=== PATIENT | male | born 1955 | race Caucasian/White ===

== ENCOUNTER 2017-08-26 15:00 | Emergency (ER) | payer OTHER ==
[~2017-08-26] VITALS: Ht 170.2 cm; Wt 97.0 kg
[2017-08-26 15:08] VITALS: TEMP 37.3; Ht 170.2 cm; Wt 97.0 kg
[2017-08-26] MEDS ORDERED: TRAMADOL HCL 50 MG TAB PO STA (15:25)
[2017-08-26] MEDS ORDERED: KETOROLAC TROMETHAMINE 30 MG/ML VIAL IV STA (15:25)
[2017-08-26] MEDS ORDERED: MoRPHine SULFATE 4 MG/ML 1 ML CARP\\VIAL IV STA (15:25)
--- NOTE | 2017-08-26 15:31 | EMERGENCY ROOM VISIT NOTE ---
History Report prepared by Luisibedi: Danni Aranda Under the Supervision of: Dr. Jus Christie M.D. First contact with patient: 15:12 Chief Complaint: PAIN (GENERALIZED) Stated Complaint: SEVERE PAIN/SWELLIN IN R ANKLE AND LEG AND R ARM History of Present Illness The patient is a 62 year old white male with a past medical history of hypertension, DM, hyperlipidemia, who presents to the ED with a cc of worsening right wrist and right ankle beginning 3 days ago. Positive erythema, edema. Negative recent trauma, falls. He reports the pain started in his left wrist. He had an MRI 2 days ago at [facility] and states it came back unremarkable. This morning he woke up with right ankle pain and swelling, that he rates as a 10/10 in severity. He called his doctors office and they referred him to the ED. He has tried Gabapentin, but states it has provided minimal relief. He can still move his toes and denies any numbness or weakness int he foot. He denies any alcohol or tobacco use. He has been eating and drinking normally. He is still urinating and moving his bowels normally. Source of History: patient Onset: 3 days [employer] Position: wrist (right), ankle (right) Symptom Intensity: 10/10 Timing: worsening Modifying Factors (Relieving): other (Gabapentin) Associated Symptoms: No weakness (right foot, right ankle), No numbness ( right foot, right ankle) Review of Systems See HPI for pertinent positives and negatives. A total of ten systems were reviewed and were otherwise negative. Past Medical & Surgical Medical Problems: (1) Diabetes mellitus (2) Fatty liver (3) Hyperlipidemia (4) Hypertension Social History Smoking Status: Former Smoker Alcohol Use: occasionally Drug Use: none Marital Status: Housing Status: lives with family Occupation Status: retired Current/Historical Medications Scheduled Allopurinol (Zyloprim), 100 MG PO DAILY Cephalexin (Keflex), 1 CAP PO QID Etodolac (Etodolac), 1 TAB PO BID Gabapentin (Neurontin), 100 MG PO TID Lisinopril (Zestril), 10 MG PO DAILY Metformin Hcl (Glucophage), 500 MG PO QPM Metformin Hcl (Glucophage), 1,000 MG PO QAM Omeprazole (Prilosec), 20 MG PO DAILY Pravastatin (Pravachol ), 20 MG PO DAILY Prednisone (Prednisone), 2 TAB PO DAILY Tamsulosin Hcl (Flomax), 0.4 MG PO DAILY Venlafaxine Hcl (Effexor), 75 MG PO DAILY Scheduled PRN Tramadol (Ultram), 50 MG PO Q8H PRN for Pain Physical Exam Vital Signs Date Time Temp Pulse Resp B/P (MAP) Pulse Ox O2 Delivery O2 Flow Rate FiO2 08/26/17 18:40 85 20 123/82 93 Room Air 08/26/17 15:08 37.3 111 16 122/75 94 Room Air Physical Exam GENERAL: Awake, alert, well-appearing, NAD HENT: Normocephalic, atraumatic. EYES: Normal conjunctiva. Sclera non-icteric. NECK: Supple. No nuchal rigidity. FROM. RESPIRATORY: CTAB, no rhonchi, wheezing, crackles CARDIAC: Tachycardic heart rate, regular rhythm, no MRG ABDOMEN: Soft, NTND, BS+ MSK: Shorted right upper extremity with 4 digits. Multiple well healed surgical incision scars. Mild pain to the dorsal aspect of the hand without redness or swelling. The patient does have mild pain with erythema to the lateral aspect of right ankle. B/l ankles same temperature. NVI. No chest wall TTP, no LE edema. NEURO: GCS 15, CN 2-12 intact, moves all 4s on command SKIN: No rash or jaundice noted. Medical Decision & Procedures ER Provider Diagnostic Interpretation: Radiology results as stated below per my review and radiologist interpretation: RIGHT ANKLE 3 VIEWS HISTORY: Right ankle mild pain, swelling, erythema over lat aspect COMPARISON: None. FINDINGS: No acute fracture or dislocation. Mild soft tissue swelling. Medial and lateral intra-articular loose bodies. Largest loose body is seen adjacent to the lateral malleolus and measures 1.2 cm. Small marginal osteophytes at the tibiotalar joint. No radiopaque foreign bodies. IMPRESSION: Chronic/degenerative changes within the right ankle. Mild soft tissue swelling. No acute fracture or dislocation. Electronically signed by: Markus Andrade M.D. 08/26/2017 5:17 PM R WRIST MIN 3 VIEWS ROUTINE HISTORY: 62 years-old Male pain, h/o of congenital malformation, ?absent forearm acute right wrist pain. COMPARISON: None available. TECHNIQUE: 3 views of the right wrist. FINDINGS: Congenitally shortened and deformed radius with cortical thickening is noted with absent ulna. Severe joint space narrowing with joint disorganization, subchondral sclerosis and subcortical cystic changes with marginal osteophytosis noted about the radiocarpal and intercarpal joints. Only 4 digits are seen. Postsurgical material seen about the first metacarpal. No acute fracture or dislocation identified. There is mild soft tissue swelling about the right upper extremity. IMPRESSION: 1. Mild soft tissue swelling of the right upper extremity without acute fracture or dislocation. 2. Congenital deformity as described above with advanced degenerative and likely posttraumatic/postsurgical changes of the radiocarpal and intercarpal joints. The above report was generated using voice recognition software. It may contain grammatical, syntax or spelling errors. Electronically signed by: Ming Nunez M.D. 08/26/2017 5:22 PM Laboratory Results 08/26/17 15:55 Red Blood Count 5.05, Mean Corpuscular Volume 87.1, Mean Corpuscular Hemoglobin 29.3, Mean Corpuscular Hemoglobin Concent 33.6, Mean Platelet Volume 11.1, Neutrophils (%) (Auto) 75.5, Lymphocytes (%) (Auto) 12.2, Monocytes (%) (Auto) 11.1, Eosinophils (%) (Auto) 0.5, Basophils (%) (Auto) 0.2, Neutrophils # (Auto ) 8.26, Lymphocytes # (Auto) 1.34, Monocytes # (Auto) 1.21, Eosinophils # (Auto ) 0.05, Basophils # (Auto) 0.02 08/26/17 15:55 Test 08/26/17 15:55 White Blood Count 10.94 K/uL (4.8-10.8) Red Blood Count 5.05 M/uL (4.7-6.1) Hemoglobin 14.8 g/dL (14.0-18.0) Hematocrit 44.0 % (42-52) Mean Corpuscular Volume 87.1 fL (80-100) Mean Corpuscular Hemoglobin 29.3 pg (25-34) Mean Corpuscular Hemoglobin Concent 33.6 g/dl (32-36) Platelet Count 187 K/uL (130-400) Mean Platelet Volume 11.1 fL (7.4-10.4) Neutrophils (%) (Auto) 75.5 % Lymphocytes (%) (Auto) 12.2 % Monocytes (%) (Auto) 11.1 % Eosinophils (%) (Auto) 0.5 % Basophils (%) (Auto) 0.2 % Neutrophils # (Auto) 8.26 K/uL (1.4-6.5) Lymphocytes # (Auto) 1.34 K/uL (1.2-3.4) Monocytes # (Auto) 1.21 K/uL (0.11-0.59) Eosinophils # (Auto) 0.05 K/uL (0-0.5) Basophils # (Auto) 0.02 K/uL (0-0.2) RDW Standard Deviation 42.8 fL (36.4-46.3) RDW Coefficient of Variation 13.5 % (11.5-14.5) Immature Granulocyte % (Auto) 0.5 % Immature Granulocyte # (Auto) 0.06 K/uL (0.00-0.02) Erythrocyte Sedimentation Rate 33 mm/hr (0-14) Anion Gap 10.0 mmol/L (3-11) Est Creatinine Clear Calc Drug Dose 60.7 ml/min Estimated GFR () 62.0 Estimated GFR (Non- 53.5 BUN/Creatinine Ratio 12.0 (10-20) Uric Acid 5.6 mg/dl (2.6-7.2) Calcium Level 9.1 mg/dl (8.5-10.1) Total Bilirubin 0.5 mg/dl (0.2-1) Direct Bilirubin 0.2 mg/dl (0-0.2) Aspartate Amino Transf (AST/SGOT) 25 U/L (15-37) Alanine Aminotransferase (ALT/SGPT) 46 U/L (12-78) Alkaline Phosphatase 96 U/L (45-117) C-Reactive Protein 7.40 mg/dl (0-0.29) Total Protein 7.4 gm/dl (6.4-8.2) Albumin 3.3 gm/dl (3.4-5.0) Thyroid Stimulating Hormone (TSH) 1.070 uIu/ml (0.300-4.500) Lyme Disease IgG Antibody NEG (NEG) Lyme Disease IgM Antibody NEG (NEG) Anti-Streptolysin O Antibody Screen NEG IU/ml (<200 IU) Laboratory results reviewed by me Medications Administered Medications (Trade) Dose Ordered Sig/Kermit Route Start Time Stop Time Status Last Admin Dose Admin Morphine Sulfate (MoRPHine SULFATE INJ) 4 mg NOW STAT IV 08/26/17 15:25 08/26/17 15:27 DC 08/26/17 17:26 4 MG Ketorolac Tromethamine (Toradol Inj) 30 mg NOW STAT IV 08/26/17 15:25 08/26/17 15:27 DC 08/26/17 17:25 30 MG Tramadol HCl (Ultram Tab) 50 mg NOW STAT PO 08/26/17 15:25 08/26/17 15:27 DC 08/26/17 17:25 50 MG Cephalexin Monohydrate (Keflex Cap) 500 mg NOW ONCE PO 08/26/17 18:15 08/26/17 18:16 DC 08/26/17 18:52 500 MG Acetaminophen/ Hydrocodone Bitart ([place] 10/325 Tab) 1 tab ONE STAT PO 08/26/17 18:47 08/26/17 18:59 DC 08/26/17 18:53 1 TAB ED Course 1516: The patient was evaluated in room B6. A complete history and physical exam was performed. 1525: Tramadol 50 mg PO, Toradol 30 mg IV, Morphine Sulfate 4 mg IV, Keflex 500 mg PO. 1815: I reevaluated the patient. He is feeling much better. I discussed his results and discharge instructions and he verbalized complete understanding and agreement. Medical Decision The patient is a 62 year old white male with a past medical history of hypertension, DM, hyperlipidemia, who presents to the ED with a cc of worsening right wrist and right ankle beginning 3 days ago. Positive erythema, edema. Negative recent trauma, falls. Triage Nursing notes reviewed. The patient's presentation and history were concerning for strain, sprain, gout , septic arthritis, hemarthrosis, rheumatoid and autoimmune. Patient was seen and evaluated the bedside. Patient did have a recent MRI of his right upper extremity which did show that he had some local inflammatory change but no other issues. Patient's joint is not very swollen or red. Patient has had prior surgery given the congenital malformation. Patient did have some trace swelling at the ankle with some mild cellulitis. Joint when compared to the left does not feel abnormally warmer. Patient's pain improved heart rate improved as well. Patient will blood cell count 10,000. Patient does have mildly elevated inflammatory markers however in the setting of what blood cell count we'll treat cellulitis and potentially treat for possible gout given his pain in the wrist and ankle. Less likely septic arthritis but told to return if entire ankle is swollen w/ redness or cannot move the ankle up/ down to return for further eval. Given the patient's CK D chose to treat possible gout with 7 day course of prednisone. Told to apply ice packs, NAYELI wrap , and elevate extremities. Patient was given strict follow-up, discharge, and return precautions. Patient was able to ambulate and was discharged home. Medication Reconcilliation Current Medication List: was personally reviewed by me Blood Pressure Screening Patient's blood pressure: Normal blood pressure Blood pressure disposition: Did not require urgent referral Impression Primary Impression: Cellulitis Additional Impression: Gout Scribe Attestation The scribe's documentation has been prepared under my direction and personally reviewed by me in its entirety. I confirm that the note above accurately reflects all work, treatment, procedures, and medical decision making performed by me. Departure Information Dispostion Home / Self-Care Prescriptions Tramadol (Ultram) 50 Mg Tab 50 MG PO Q8H Y for Pain, #15 TAB Prov: Jus Christie M.D. 08/26/17 Prednisone (Prednisone) 20 Mg Tab 2 TAB PO DAILY for 7 Days, #14 TAB 3 TABS DAILY FOR 2 DAYS, THEN 2 TABS DAILY FOR 2 DAYS, THEN 1 TAB DAILY FOR 2 DAYS, THEN 1/2 TAB DAILY FOR 2 DAYS. Prov: Jus Christie M.D. 08/26/17 Cephalexin (KEFLEX) 500 Mg Cap 1 CAP PO QID for 7 Days, #28 CAP Prov: Jus Christie M.D. 08/26/17 Referrals No Doctor, Assigned (PCP) Patient Instructions Cellulitis Dc, ED Arthritis Gout, ED Diet Gout, Gout, Gout Eat Prevent, My [facility] [place] Additional Instructions Please return to the emergency department if you have worsening or recurrent symptoms not amenable to at-home treatment. Please call for a follow-up appointment with her primary care physician. Please take your medications as prescribed. If you have other concerns and/or complaints please feel free to also call your primary care physician's office or return the ED for further evaluation, management, and treatment. You were found to have an elevated blood pressure today (>120 sytolic or >90 diastolic). Per medicare guidelines, you need to follow up with this blood pressure screening with your Primary Care Physician (PCP). For a new PCP call [phone]. You received narcotic or benzodiazepene medication while in the emergency room today. This is an addictive medication that may cause drowziness as well as constipation. Do not drive, operate heavy machinery, or drink alcohol under the influence of this medication. You may take 600 mg Ibuprofen every 6 hours as needed for pain with food for no more than 2 consecutive days. You may take tylenol 1000mg every 6 hours as needed for pain. You may take motrin and tylenol separately or at the same time. You have been examined and treated today on an emergency basis only. This is not a substitute for, or an effort to provide, complete comprehensive medical care. It is impossible to recognize and treat all injuries or illnesses in a single emergency department visit. It is therefore important that you follow up closely with [facility]. Call as soon as possible for an appointment. Thank you for your time and consideration. I look forward to speaking with you again soon. Please don't hesitate to call us if you have any questions. Problem Qualifiers Primary Impression: Cellulitis Site of cellulitis: other site Qualified Codes: L03.818 - Cellulitis of other sites Additional Impression: Gout Gout site: unspecified site Gout etiology: unspecified cause Chronicity: unspecified Qualified Codes: M10.9 - Gout, unspecified
[2017-08-26 16:17] LABS: BASO % 0.2 %; BASO ABS # 0.02 K/uL (0-0.2); COMPLETE YES; EOS % 0.5 %; IG% 0.5 %; LYMPH % 12.2 %; LYMPH ABS # 1.34 K/uL (1.2-3.4); MEAN CELL VOLUME 87.1 fL (80-100); MEAN CORPUSCULAR HEMOGLOBIN 29.3 pg (25-34); MEAN CORPUSCULAR HGB CONC 33.6 g/dl (32-36); MEAN PLATELET VOLUME 11.1 fL (7.4-10.4); MONO % 11.1 %; NEUT % 75.5 %; PLATELET COUNT 187 K/uL (130-400); RED BLOOD COUNT 5.05 M/uL (4.7-6.1); WHITE BLOOD COUNT 10.94 K/uL (4.8-10.8)
[2017-08-26] MEDS ORDERED: ETOD400T PO (16:18)
[2017-08-26] MEDS ORDERED: GABA-112 PO (16:18)
[2017-08-26] MEDS ORDERED: ALLO100T PO (16:18)
[2017-08-26] MEDS ORDERED: TAMS0.4C38 PO (16:18)
[2017-08-26] MEDS ORDERED: PRLSR20 PO (16:20)
[2017-08-26] MEDS ORDERED: GLC/500 PO ×2 (16:20)
[2017-08-26] MEDS ORDERED: EFF75 PO (16:20)
[2017-08-26] MEDS ORDERED: LISI-461 PO (16:20)
[2017-08-26] MEDS ORDERED: PRAV20TA PO (16:20)
[2017-08-26 16:37] LABS: C-REACTIVE PROTEIN 7.4 mg/dl (0-0.29); CALCIUM 9.1 mg/dl (8.5-10.1); CREATININE 1.4 mg/dl (0.60-1.40); POTASSIUM 3.9 mmol/L (3.5-5.1); URIC ACID 5.6 mg/dl (2.6-7.2)
[2017-08-26 16:48] LABS: THYROID STIMULATING HORMONE 1.07 uIu/ml (0.300-4.500)
[2017-08-26 16:49] LABS: ANTI-STREP O SCR: 5YRS OR > NEG IU/ml (<200 IU)
[2017-08-26 17:11] LABS: LYME DISEASE AB IGG NEG (NEG); LYME DISEASE AB IGM NEG (NEG)
--- NOTE | 2017-08-26 17:19 | DIAGNOSTIC IMAGING REPORT ---
RIGHT ANKLE 3 VIEWS HISTORY: Right ankle mild pain, swelling, erythema over lat aspect COMPARISON: None. FINDINGS: No acute fracture or dislocation. Mild soft tissue swelling. Medial and lateral intra-articular loose bodies. Largest loose body is seen adjacent to the lateral malleolus and measures 1.2 cm. Small marginal osteophytes at the tibiotalar joint. No radiopaque foreign bodies. IMPRESSION: Chronic/degenerative changes within the right ankle. Mild soft tissue swelling. No acute fracture or dislocation. Electronically signed by: Markus Andrade M.D. 08/26/2017 5:17 PM Dictated Date/Time: 08/26/2017 5:16 PM
--- NOTE | 2017-08-26 17:23 | DIAGNOSTIC IMAGING REPORT ---
R WRIST MIN 3 VIEWS ROUTINE HISTORY: 62 years-old Male pain, h/o of congenital malformation, ?absent forearm acute right wrist pain. COMPARISON: None available. TECHNIQUE: 3 views of the right wrist. FINDINGS: Congenitally shortened and deformed radius with cortical thickening is noted with absent ulna. Severe joint space narrowing with joint disorganization, subchondral sclerosis and subcortical cystic changes with marginal osteophytosis noted about the radiocarpal and intercarpal joints. Only 4 digits are seen. Postsurgical material seen about the first metacarpal. No acute fracture or dislocation identified. There is mild soft tissue swelling about the right upper extremity. IMPRESSION: 1. Mild soft tissue swelling of the right upper extremity without acute fracture or dislocation. 2. Congenital deformity as described above with advanced degenerative and likely posttraumatic/postsurgical changes of the radiocarpal and intercarpal joints. The above report was generated using voice recognition software. It may contain grammatical, syntax or spelling errors. Electronically signed by: Ming Nunez M.D. 08/26/2017 5:22 PM Dictated Date/Time: 08/26/2017 5:16 PM
[2017-08-26] MEDS ORDERED: CEPHALEXIN MONOHYDRATE 250 MG CAP PO ONE (18:15)
[2017-08-26] MEDS ORDERED: PRED20TA PO (18:29)
[2017-08-26] MEDS ORDERED: TRAM-10 PO (18:29)
[2017-08-26] MEDS ORDERED: CEPH-571 PO (18:29)
[2017-08-26 18:40] VITALS: BP 123/82; PULSE 85; O2SAT 93
[2017-08-26] MEDS ORDERED: HYDROCODONE/ACETAMI 10/325 TAB PO STA (18:47)
== END 2017-08-26 19:00 | disposition home or self-care (01) ==
LOC: EDBD 15:03 → C.EDB 15:03
DX: L03.115 Cellulitis of right lower limb (principal); M10.9 Gout, unspecified; I10 Essential (primary) hypertension; E11.9 Type 2 diabetes mellitus without complications; E78.5 Hyperlipidemia, unspecified; K76.0 Fatty (change of) liver, not elsewhere classified; Z87.891 Personal history of nicotine dependence; Z79.899 Other long term (current) drug therapy; Z79.84 Long term (current) use of oral hypoglycemic drugs

== ENCOUNTER 2017-10-09 10:33 | Emergency (ER) | payer OTHER ==
[~2017-10-09] VITALS: Ht 170.2 cm; Wt 97.0 kg
[~2017-10-09 10:33] MED LIST: ALLO100T PO; EFF75 PO; ETOD400T PO; GABA-112 PO; GLC/500 PO; LISI-461 PO; PRAV20TA PO; PRLSR20 PO; TAMS0.4C38 PO; TRAM-10 PO
[2017-10-09 10:42] VITALS: TEMP 37.3; Ht 170.2 cm; Wt 97.0 kg
[2017-10-09] MEDS ORDERED: TRAMADOL HCL 50 MG TAB PO STA (10:53)
[2017-10-09] MEDS ORDERED: PRVC10 PO (11:02)
[2017-10-09] MEDS ORDERED: DUTA0.5C PO (11:02)
--- NOTE | 2017-10-09 11:11 | EMERGENCY ROOM VISIT NOTE ---
History First contact with patient: 10:46 Chief Complaint: FOOT PAIN Stated Complaint: RT FOOT PAIN, FELL YESTERDAY, POSSIBLE GOUT History of Present Illness The patient is a 62 year old male who presents to the Emergency Room via private vehicle accompanied by female with complaints of "right foot pain, fell yesterday, possible gout". The patient states that he was seen here in the ER about one month ago for right foot and right arm pain. He states that he was diagnosed with gout and was given medication and has been feeling much better. Unfortunately yesterday while attempting to change a battery in a smoke detector he fell off of the chair and injured his right wrist and right ankle. He notes pain in these regions again. He rates the pain as a 7/10. He is concerned that perhaps he is injured these or may be his gout is re-flaring. He denies any fevers. He notes that he was doing well until he fell yesterday. Review of Systems A complete 6-point Review of Systems was discussed with the patient, with pertinent positives and negatives listed in the History of Present Illness. All remaining Review of Systems questions can be considered negative unless otherwise specified. Past Medical/Surgical History Medical Problems: (1) Diabetes mellitus (2) Fatty liver (3) Hyperlipidemia (4) Hypertension Social History Smoking Status: Former Smoker Alcohol Use: occasionally Drug Use: none Marital Status: Housing Status: lives with family Occupation Status: retired Current/Historical Medications Scheduled Allopurinol (Zyloprim), 100 MG PO DAILY Dutasteride (Avodart), 0.5 MG PO DAILY Etodolac (Etodolac), 400 MG PO BID Gabapentin (Neurontin), 100 MG PO TID Lisinopril (Zestril), 10 MG PO DAILY Metformin Hcl (Glucophage), 1,000 MG PO BID Omeprazole (Prilosec), 20 MG PO DAILY Pravastatin Sod (Pravastatin Sodium), 10 MG PO DAILY Prednisone (Prednisone Tab), 2 TAB PO DAILY Tamsulosin Hcl (Flomax), 0.4 MG PO DAILY Venlafaxine Hcl (Effexor), 75 MG PO DAILY Scheduled PRN Tramadol (Ultram), 50 MG PO Q8H PRN for Pain Physical Exam Vital Signs Date Time Temp Pulse Resp B/P (MAP) Pulse Ox O2 Delivery O2 Flow Rate FiO2 11/12/17 10:42 37.3 91 20 137/82 95 Room Air Physical Exam VITAL SIGNS - Vital signs and nursing notes were reviewed. Afebrile, normotensive, non-tachycardic and is saturating well on room air 95%. GENERAL -62-year-old male appearing his stated age who is in no acute distress. Communicates well with provider and answers questions appropriately. SKIN - Without rashes. Skin overlying the right wrist and right ankle is unremarkable. There are well-healed surgical scars over the patient's right wrist. There is congenital deformity of the right wrist. EXTREMITIES - No clubbing or peripheral cyanosis. No pretibial edema present. Tenderness to palpation overlying the medial aspect of the patient's right wrist. There is no proximal or distal tenderness. There is also tenderness overlying the patient's inferior posterior right lateral malleolus without any proximal or distal tenderness. Decreased range of motion of these regions. He is neurovascularly intact in these regions. +5/5 strength noted in UE/LE bilaterally. Medical Decision & Procedures ER Provider Diagnostic Interpretation: R ANKLE MIN 3 VIEWS ROUTINE HISTORY: 62 years-old Male Fall, R ankle pain acute right ankle pain status post fall COMPARISON: Right ankle radiographs 08/26/2017 TECHNIQUE: 3 views of the right ankle FINDINGS: There is mild marginal spurring about the calcaneus. 1.2 cm corticated bone fragment inferior to the lateral malleolus is unchanged suggesting remote avulsion fracture or accessory ossicle. Mild dystrophic appearing calcification is seen within the region of the distal tendon near the calcaneal attachment site. Mild dorsal spurring of the talus and navicular. Os trigonum. There is no acute fracture or dislocation. Unchanged 4 mm corticated bone fragment adjacent to the medial malleolus. Mild soft tissue swelling about the ankle. IMPRESSION: 1. Mild soft tissue swelling without acute fracture or dislocation. 2. Stable chronic changes about the ankle as above. The above report was generated using voice recognition software. It may contain grammatical, syntax or spelling errors. Electronically signed by: Ming Nunez M.D. 10/09/2017 11:32 AM Dictated Date/Time: 10/09/2017 11:30 AM 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 Severe joint space narrowing with joint disorganization, subchondral sclerosis and subcortical cystic changes with marginal osteophytosis is present about the radiocarpal and intercarpal joints. Only 4 digits are seen. Postsurgical material seen about the first metacarpal. No acute fracture or dislocation identified. There is mild soft tissue swelling about the right upper extremity. Mild to moderate soft tissue swelling about the forearm and wrist. IMPRESSION: 1. Mild to moderate soft tissue swelling about the forearm and wrist without acute fracture or dislocation. 2. 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 The above report was generated using voice recognition software. It may contain grammatical, syntax or spelling errors. Electronically signed by: Ming Nunez M.D. 10/09/2017 11:35 AM Dictated Date/Time: 10/09/2017 11:32 AM Medications Administered Medications (Trade) Dose Ordered Sig/Kermit Route Start Time Stop Time Status Last Admin Dose Admin Tramadol HCl (Ultram Tab) 50 mg NOW STAT PO 10/09/17 10:53 10/09/17 10:55 DC 10/09/17 11:01 50 MG Medical Decision Patient was seen and evaluated as above. After obtaining a thorough history and physical examination radiographs were obtained of the affected regions. No acute fracture. I do suspect that he is likely experiencing either an acute gouty flare secondary to trauma superimposed upon his underlying musculoskeletal injury from the fall. He will be splinted. This was with good fit. He was given tramadol for pain. He'll be started upon a small course of prednisone for his symptoms. He is to follow up with family doctor for further Testing. He is to return with worsening. He was educated upon management, educated upon worrisome symptoms which to return, had questions about discharge , and was discharged home in good condition. In evaluation treatment this patient following differential diagnoses were entertained, fracture, dislocation, traumatic arthritis, septic joint, among others. Impression Primary Impression: Fall Additional Impressions: Wrist pain, right Ankle pain, right Departure Information Dispostion Home / Self-Care Condition GOOD Prescriptions Tramadol (Ultram) 50 Mg Tab 50 MG PO Q8H Y for Pain, #9 TAB Prov: Morris Delarosa PA-C 10/09/17 Prednisone (Prednisone Tab) 20 Mg Tab 2 TAB PO DAILY for 5 Days, #10 TAB Prov: Morris Delarosa PA-C 10/09/17 Referrals Leida Barba CRNP (PCP) Payam Eubanks D.O. Patient Instructions My [facility] Additional Instructions You have been treated in the Emergency Department for Wrist Pain and ankle pain. You have received pain medicine in the emergency department which impairs your ability to operate a vehicle. It is illegal for you to drive after receiving these medicines. You have been prescribed TRAMADOL to be used for pain control. This is a narcotic medication. You cannot drive or consume alcohol while on this medicine. This medicine should only be used for pain that cannot be controlled with [id number] pain medicines. You have been prescribed Prednisone 40 mg to be taken orally once a day for the next 5 days. This is an anti-inflammatory medicine to be used to help minimize your symptoms. You should take the COMPLETE course of the medication. For pain control, you can use the following [id number] medicines (if >12 yo): - Regular strength (325mg/tab) Tylenol (acetaminophen) 2 tabs every 4-6 hours as needed. Do not exceed 12 tablets in a 24 hour period. Avoid taking more than 3 grams (3000 mg) of Tylenol per day. This includes any other sources of acetaminophen you may take on a regular basis. If this is a recent injury (<24 hrs), ice can be applied to the area of pain for the first 3 days to help decrease pain and inflammation. Please follow with her family doctor regarding your injuries today as we discussed. Please return with any new/concerning symptoms. Problem Qualifiers
--- NOTE | 2017-10-09 11:33 | DIAGNOSTIC IMAGING REPORT ---
R ANKLE MIN 3 VIEWS ROUTINE HISTORY: 62 years-old Male Fall, R ankle pain acute right ankle pain status post fall COMPARISON: Right ankle radiographs 08/26/2017 TECHNIQUE: 3 views of the right ankle FINDINGS: There is mild marginal spurring about the calcaneus. 1.2 cm corticated bone fragment inferior to the lateral malleolus is unchanged suggesting remote avulsion fracture or accessory ossicle. Mild dystrophic appearing calcification is seen within the region of the distal tendon near the calcaneal attachment site. Mild dorsal spurring of the talus and navicular. Os trigonum. There is no acute fracture or dislocation. Unchanged 4 mm corticated bone fragment adjacent to the medial malleolus. Mild soft tissue swelling about the ankle. IMPRESSION: 1. Mild soft tissue swelling without acute fracture or dislocation. 2. Stable chronic changes about the ankle as above. The above report was generated using voice recognition software. It may contain grammatical, syntax or spelling errors. Electronically signed by: Ming Nunez M.D. 10/09/2017 11:32 AM Dictated Date/Time: 10/09/2017 11:30 AM
--- NOTE | 2017-10-09 11:37 | DIAGNOSTIC IMAGING REPORT ---
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 Severe joint space narrowing with joint disorganization, subchondral sclerosis and subcortical cystic changes with marginal osteophytosis is present about the radiocarpal and intercarpal joints. Only 4 digits are seen. Postsurgical material seen about the first metacarpal. No acute fracture or dislocation identified. There is mild soft tissue swelling about the right upper extremity. Mild to moderate soft tissue swelling about the forearm and wrist. IMPRESSION: 1. Mild to moderate soft tissue swelling about the forearm and wrist without acute fracture or dislocation. 2. 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 The above report was generated using voice recognition software. It may contain grammatical, syntax or spelling errors. Electronically signed by: Ming Nunez M.D. 10/09/2017 11:35 AM Dictated Date/Time: 10/09/2017 11:32 AM
[2017-10-09] MEDS ORDERED: PRED20TA2 PO (11:52)
[2017-10-09] MEDS ORDERED: TRAM-10 PO (11:52)
[2017-10-09 12:01] VITALS: BP 142/84; PULSE 84; O2SAT 94
== END 2017-10-09 12:00 | disposition home or self-care (01) ==
LOC: C.EDB 10:34 → C.EDD 12:00
DX: M25.531 Pain in right wrist (principal); M25.571 Pain in right ankle and joints of right foot; W07.XXXA Fall from chair, initial encounter; E11.9 Type 2 diabetes mellitus without complications; I10 Essential (primary) hypertension; E78.5 Hyperlipidemia, unspecified; K76.0 Fatty (change of) liver, not elsewhere classified; Z87.891 Personal history of nicotine dependence; Z79.1 Long term (current) use of non-steroidal anti-inflammatories (NSAID); Z79.891 Long term (current) use of opiate analgesic; Z79.52 Long term (current) use of systemic steroids

== ENCOUNTER 2021-03-03 06:11 | Inpatient (IN) ==
--- NOTE | 2021-02-16 10:53 | PAT Medication Instructions ---
Medication Instructions Date of Service February 16, 2021 Home Medications albuterol sulfate 1 inh INHALATION QID PRN allopurinol 300 mg PO QAM aspirin [Aspir-81] 81 mg PO PM duloxetine 60 mg PO QAM fenofibrate nanocrystallized 48 mg PO QAM fluticasone furoate-vilanterol [Breo Ellipta] 1 inh INHALATION PM gabapentin 100 mg PO BID lisinopril 20 mg PO QAM metformin 500 mg PO BID pravastatin 10 mg PO PM tamsulosin 0.4 mg PO PM ASK your prescriber and surgeon aspirin [Aspir-81] 81 mg PO PM STOP taking 48 hours before surgery fenofibrate nanocrystallized 48 mg PO QAM DO NOT take the morning of surgery lisinopril 20 mg PO QAM metformin 500 mg PO BID Take morning of surgery With a small sip of water, OTHERWISE NOTHING TO EAT OR DRINK AFTER MIDNIGHT: albuterol sulfate 1 inh INHALATION QID PRN (use if needed; please bring rescue inhaler with you to hospital day of surgery if possible) allopurinol 300 mg PO QAM duloxetine 60 mg PO QAM gabapentin 100 mg PO BID Take evening before surgery albuterol sulfate 1 inh INHALATION QID PRN (if needed) fluticasone furoate-vilanterol [Breo Ellipta] 1 inh INHALATION PM gabapentin 100 mg PO BID metformin 500 mg PO BID pravastatin 10 mg PO PM tamsulosin 0.4 mg PO PM Other Notes If you have any questions please call us at [phone] or [phone] or [phone] or [phone]
--- NOTE | 2021-02-17 11:23 | Anesthesiology Consultation ---
Date of Service February 17, 2021 Assessment & Plan (1) Encounter for pre-operative examination: - Elevated creatinine: No known hx of CKD per patient. Awaiting PCP response. - COVID screening: Per assessment on 02/17: Travel screen negative, no known COVID-19 positive contacts or current COVID-19 related symptoms. Surgeon arranging preop COVID testing (scheduled 02/24; [facility]). Awaiting results. - Check BSG AM DOS Chart Review Chart Review: Patient seen in Pre Admission Testing Teaching & Discussion Pre-Anesthesia Teaching/Discussion Notes: Instructed NPO after midnight before surgery,except medications with 15 cc of water. Medication instructions provided according to the PAT guidelines. History Surgery Operation Date: 03/03/21 07:45 Proposed Procedures p L2-S1 Decompression and Fusion Spinal Cord Monitoring - Musa Vides DO Height/Weight Height: 5 ft 8 in Weight: 96.7 kg Allergies Allergy/AdvReac Type Severity Reaction Status Date / Time No Known Allergies Allergy Verified 01/28/21 14:20 Medications Home Medications Medication Instructions Recorded Confirmed Last Taken albuterol sulfate 1 inh INHALATION QID PRN 01/28/21 01/28/21 Unknown allopurinol 300 mg PO QAM 01/28/21 01/28/21 Unknown aspirin [Aspir-81] 81 mg PO PM 01/28/21 01/28/21 Unknown duloxetine 60 mg PO QAM 01/28/21 01/28/21 Unknown fenofibrate nanocrystallized 48 mg PO QAM 01/28/21 01/28/21 Unknown fluticasone furoate-vilanterol 1 inh INHALATION PM 01/28/21 01/28/21 Unknown [Breo Ellipta] gabapentin 100 mg PO BID 01/28/21 01/28/21 Unknown lisinopril 20 mg PO QAM 01/28/21 01/28/21 Unknown metformin 500 mg PO BID 01/28/21 01/28/21 Unknown pravastatin 10 mg PO PM 01/28/21 01/28/21 Unknown tamsulosin 0.4 mg PO PM 01/28/21 01/28/21 Unknown Past Medical History Medical History Anxiety Asthma well controlled BPH (benign prostatic hyperplasia) Diabetes mellitus, type 2 NIDDM Diverticular disease GERD (gastroesophageal reflux disease) "mild" Gout Hyperlipidemia Hypertension Kidney stone Passed without intervention Sleep apnea CPAP Exercise / Class Metabolic Activity III < 4 Walking/Shop/Light housework Past Family History Family History Mother Diabetes Past Surgical History Surgical History History of carpal tunnel release Left History of colonoscopy History of fusion of cervical spine History of surgery on arm Multiple to right arm (r/t defect) History of tooth extraction Hx of inguinal hernia repair Hx of skin graft Abdominal skin placed to right hand (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) Past Anesthesia History No Hx of Anesthesia Complications and No Family Hx of Anesthesia Complications Social History Smoking Status: Current every day smoker tobacco type: cigarettes Smoking cigarettes per day: 4 cigs/day (intermittent use x several years) Do You Dip or Chew Tobacco: No Hx Alcohol Use: No Hx Substance Use: No substance use type: does not use Review of Systems Patient denies chest pain, shortness of breath, dyspnea on exertion, joint pain, reflux, cough, wheezing, palpitations. Physical Exam Vital Signs VITALS BP 119/71 P 77 TEMP SP02 94%RA RESP 18 PHYSICAL Full neck and c-spine range of motion. Full TMJ range of motion. TMD 3 finger breaths Mallampati Score 1 Dentition: upper front right missing cap, several missing teeth/poor dentition Lungs: clear throughout to auscultation Cardiac: regular rate and rhythm, no murmurs noted Spine: normal Carotid arteries: negative bruit Extremities: RUE/hand congenital defect Testing Laboratory Results 02/17/21 11:40 02/17/21 11:40 PT 10.5 Seconds (9.0-12.0) 02/17/21 11:40 INR 1.0 (0.9-1.1) 02/17/21 11:40 APTT 26.2 Seconds (21.0-31.0) 02/17/21 11:40 Hemoglobin A1c 6.7 % (4.5-5.6) H 02/17/21 11:40 Urine Color Yellow 02/17/21 11:40 Urine Appearance Clear (Clear) 02/17/21 11:40 Urine pH 5.5 (4.5-7.5) 02/17/21 11:40 Ur Specific [place] 1.025 (1.000-1.030) 02/17/21 11:40 Urine Protein Negative (Negative) 02/17/21 11:40 Urine Glucose (UA) Trace (Negative) H 02/17/21 11:40 Urine Ketones Negative (Negative) 02/17/21 11:40 Urine Nitrite Negative (Negative) 02/17/21 11:40 Ur Leukocyte Esterase Negative (Negative) 02/17/21 11:40 Blood Type O Positive 02/17/21 11:40 Antibody Screen NEGATIVE 02/17/21 11:40 02/17/21 GFR 52.8 Electrocardiogram Date: 02/17/21 NSR with sinus arrhythmia at 76bpm. Chest X-Ray Date: 02/17/21 FINDINGS: The heart is mildly enlarged. There is no failure. There is no focal pulmonary consolidation. There are no pleural effusions. Post surgical changes are present within the cervical spine. IMPRESSION: No active disease in the chest.
--- NOTE | 2021-02-17 12:26 | XRay Report ---
XR chest Pre-admission PA/Lat CLINICAL HISTORY: Preoperative chest COMPARISON STUDY: No previous studies for comparison. FINDINGS: The heart is mildly enlarged. There is no failure. There is no focal pulmonary consolidatio n. There are no pleural effusions. Post surgical changes are present within the cervical spine[ IMPRESSION: No active disease in the chest. ACT 112: Negative or not required by law. Electronically signed by: Cooper Rivera M.D. 02/17/2021 12:24 PM
[2021-02-17 12:38] LABS: Basophils # (auto) 0.02 K/uL (0-0.2); Basophils % (auto) 0.2 %; Eosinophils % (auto) 2.5 %; Hematocrit (blood only) 46.2 % (42-52); Hemoglobin 15.8 g/dL (14.0-18.0); Immature Granulocytes # (auto) 0.02 K/uL (0.00-0.02); Immature Granulocytes % (auto) 0.2 %; Lymphocytes # (auto) 1.84 K/uL (1.2-3.4); Lymphocytes % (auto) 22.9 %; Mean Corpuscular Hemoglobin 30.9 pg (25-34); Mean Corpuscular Hgb Conc 34.2 g/dL (32-36); Mean Corpuscular Volume 90.2 fL (80-100); Mean Platelet Volume 12.7 fL (7.4-10.4); Monocytes % (auto) 6.2 %; Neutrophils # (auto) 5.44 K/uL (1.4-6.5); Platelet Count 157 K/uL (130-400); RDW Coefficient of Variation 14.4 % (11.5-14.5); RDW Standard Deviation 47.5 fL (36.4-46.3); Red Blood Count 5.12 M/uL (4.7-6.1); White Blood Count 8.02 K/uL (4.8-10.8)
[2021-02-17 12:51] LABS: BUN Creatinine Ratio 8.1 (10-20); Calcium 9.1 mg/dl (8.5-10.1); Creatinine Clr Calc Pharmacy 52.9 ml/min; Est GFR (African American) 52.8; Est GFR (Non-African American) 45.6; Partial Thromboplastin Time 26.2 Seconds (21.0-31.0); Potassium 4.2 mmol/L (3.5-5.1); Prothrombin Time 10.5 Seconds (9.0-12.0)
[2021-02-17 12:59] LABS: Estimated Average Glucose 146 mg/dl; Hemoglobin A1C 6.7 % (4.5-5.6)
[2021-02-17 13:54] LABS: Appearance Urine Clear (Clear); Bilirubin Urine Negative (Negative); Blood Urine Negative (Negative); Color Urine Yellow; Glucose Urine UA Trace (Negative); Ketones Urine Negative (Negative); Leukocyte Esterase Urine Negative (Negative); Nitrite Urine Negative (Negative); Protein Urine Negative (Negative); Specific Gravity Urine 1.025 (1.000-1.030); Urobilinogen Urine Negative (Negative); pH Urine 5.5 (4.5-7.5)
--- NOTE | 2021-02-17 14:39 | Electrocardiogram Report ---
Test Reason : Blood Pressure : / mmHG Vent. Rate : 076 BPM Atrial Rate : 076 BPM P-R Int : 140 ms QRS Dur : 094 ms QT Int : 376 ms P-R-T Axes : 060 040 060 degrees QTc Int : 423 ms Normal sinus rhythm with sinus arrhythmia Normal ECG No previous ECGs available Confirmed by Cristino Keller ([id number]) on 02/17/2021 2:39:28 PM Referred By: Musa Vides Confirmed By:José Miguel Keller
[~2021-03-03 06:11] MED LIST changes: +ACETAMINOPHEN 500 MG TAB PO SCH; -ALLO100T PO; +CeleBREX 200 MG CAP PO SCH; -EFF75 PO; -ETOD400T PO; -GABA-112 PO; +GABAPENTIN 300 MG CAP PO SCH; -GLC/500 PO; -LISI-461 PO; +LR 15ML/HR IV SCH; -PRAV20TA PO; -PRLSR20 PO; -TAMS0.4C38 PO; -TRAM-10 PO; +ceFAZolin 2000MG 2,000 MG/15 ML SYR IV SCH
[2021-03-03] MEDS ORDERED: HYDROmorphone INJ 2 MG/ML SYR/VIAL ONE (06:37)
[2021-03-03] MEDS ORDERED: MIDAZOLAM HCL 1 MG/ML 2ML VIAL ONE (06:37)
[2021-03-03] MEDS ORDERED: SUGAMMADEX SODIUM 200 MG/2 ML VIAL IV ONE (06:47)
[2021-03-03] MEDS ORDERED: BACITRACIN INJ 50,000 UNIT VIAL ONE (07:08)
[2021-03-03] MEDS ORDERED: BUPIVACAINE/EPINEPHRINE 0.5% MPF 1:200,000 30 ML VIAL ONE (07:08)
--- NOTE | 2021-03-03 07:31 | History & Physical Bridge Note ---
Date of Service March 03, 2021 History & Physical Bridge Note I have examined the patient, reviewed the History & Physical and in the interval since the performance of the History & Physical I have noted the following changes of clinical significance: no changes noted
--- NOTE | 2021-03-03 07:32 | History & Physical Report ---
Date of Service March 03, 2021 Assessment & Plan (1) Neurogenic claudication due to lumbar spinal stenosis: Admission and Anticipated Discharge Date Admission Date: L2-S1 decompression fusion History of Present Illness Chief Complaint: Back and bilateral leg pain Primary Care Provider: FERN Payne This is a 65-year-old male presents with chronic persistent back and leg pain failing conservative course of nonoperative care is here for surgical invention. Allergies Allergy/AdvReac Type Severity Reaction Status Date / Time No Known Allergies Allergy Verified 03/03/21 06:37 Home Medications Medication Instructions Recorded Confirmed Type albuterol sulfate 1 inh INHALATION QID PRN 01/28/21 03/03/21 History allopurinol 300 mg PO QAM 01/28/21 03/03/21 History aspirin [Aspir-81] 81 mg PO PM 01/28/21 03/03/21 History duloxetine 60 mg PO QAM 01/28/21 03/03/21 History fenofibrate nanocrystallized 48 mg PO QAM 01/28/21 03/03/21 History fluticasone furoate-vilanterol 1 inh INHALATION PM 01/28/21 03/03/21 History [Breo Ellipta] gabapentin 100 mg PO BID 01/28/21 03/03/21 History lisinopril 20 mg PO QAM 01/28/21 03/03/21 History metformin 500 mg PO BID 01/28/21 03/03/21 History pravastatin 10 mg PO PM 01/28/21 03/03/21 History tamsulosin 0.4 mg PO PM 01/28/21 03/03/21 History Past Med/Surg History Medical History Anxiety Asthma well controlled BPH (benign prostatic hyperplasia) Diabetes mellitus, type 2 NIDDM Diverticular disease GERD (gastroesophageal reflux disease) "mild" Gout Hyperlipidemia Hypertension Kidney stone Passed without intervention Sleep apnea CPAP Surgical History History of carpal tunnel release Left History of colonoscopy History of fusion of cervical spine History of surgery on arm Multiple to right arm (r/t defect) History of tooth extraction Hx of inguinal hernia repair Hx of skin graft Abdominal skin placed to right hand (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) Family History Mother Diabetes Social History Smoking Status: Current every day smoker Cigarettes Per Day: 4 cigs/day (intermittent use x several years); Second Hand Exposure: No; Do You Dip or Chew Tobacco: No; Tobacco Cessation Education Requested by Patient: No Hx Alcohol Use: No Hx Substance Use: No Preferred Language: Setswana Communication Ability: Effective Ad Operations Intern Required: No Beliefs That Will Affect Care: None Current Living Situation: Spouse Other Information That Helps Us Care for You: No Feels Safe at Home: Yes Safety Concerns: Feels Safe At This Time Assistive Devices: Hearing Aid - Bilateral Physical Exam Physical Exam: Patient is alert and oriented Heart regular in rhythm Lungs clear to auscultation Results & Data ([facility]) Vital Signs (Past 12 Hours) Vital Signs Temp Pulse Resp BP Pulse Ox 03/03/21 06:43 36.9 C 90 20 131/91 94
[2021-03-03] MEDS ORDERED: HYDROmorphone INJ 2 MG/ML SYR/VIAL IV PRN (07:34)
[2021-03-03] MEDS ORDERED: ATROPINE SULFATE 0.1 MG/ML 10ML SYR IV PRN (07:34)
[2021-03-03] MEDS ORDERED: ePHEDrine sulfate 50 MG/ML AMP IV PRN (07:34)
[2021-03-03] MEDS ORDERED: PROMETHAZINE HCL 6.25 MG in SODIUM CHLORIDE 0.9% 50 ML IV PRN (07:34)
[2021-03-03] MEDS ORDERED: ONDANSETRON INJ 2 MG/ML 2 ML VIAL IV PRN ×2 (07:34→11:58)
[2021-03-03] MEDS ORDERED: fentaNYL citrate 100 MCG/2 ML VIAL IV PRN (07:34)
[2021-03-03] MEDS ORDERED: ROCURONIUM BROMIDE 10 MG/ML 5 ML VIAL IV ONE ×2 (08:07→08:21)
[2021-03-03] MEDS ORDERED: ONDANSETRON INJ 2 MG/ML 2 ML VIAL ONE (08:07)
[2021-03-03] MEDS ORDERED: PROPOFOL IV EMULSION 10 MG/ML 20 ML VIAL IV ONE (08:07)
[2021-03-03] MEDS ORDERED: DEXAMETHASONE SOD INJ 4 MG/ML VIAL ONE (08:07)
[2021-03-03] MEDS ORDERED: LIDOCAINE HCL 2% 2 ML VIAL/AMP(20MG/ML) INFIL ONE (08:07)
[2021-03-03] MEDS ORDERED: PHENYLEPHRINE 100MCG/ML 5ML SYR ONE ×2 (08:08→09:06)
[2021-03-03] MEDS ORDERED: ePHEDrine sulfate 50 MG/ML SYR ONE ×2 (08:08→08:20)
[2021-03-03] MEDS ORDERED: ALBUMIN HUMAN 5% 12.5 GM/250 ML VIAL IV ONE (08:31)
[2021-03-03] MEDS ORDERED: FLOSEAL HEMOSTATIC MATRIX 10ML TOP ONE (10:20)
--- NOTE | 2021-03-03 10:29 | Operative Report ---
Post Operative Report Pre & Post Diagnosis Operation Date: 03/03/21 07:45 Pre-Op Diagnosis: Neurogenic Claudication due to Lumbar Spinal Stenosis Post-Op Diagnosis: Neurogenic Claudication due to Lumbar Spinal Stenosis I identified the patient and participated in the time-out.: Yes Procedure Operation Date: 03/03/21 07:45 Actual Procedures #1 lumbar decompression with bilateral medial facetectomies and foraminotomies L 2 L3, L3-L4, L4-L5. #2 posterior spinal fusion L2-L5. #3 placement posterior segmental instrumentation L2-L5. #4 interbody fusion L3-4 L4-5. #5 placement peek cage 11 x 26 mm at L3-4 L4-5. #6 placement locally harvested morselized autograft in the posterior gutters. #7 placement infuse collagen sponge, master graft in the posterior gutters and I factor and interbody spaces. Surgeon Musa Vides, Ui Designer Carmelita Portillo Estimated Blood Loss 650 Findings See Below Patient is 5 foot 7 weighing over 96 kg with a BMI in excess of 33. The patient's body habitus did contribute to significant technical difficulty requiring her deepest retractors and longest instruments in order to perform his procedure. This this combined with an EBL of greater than 650 cc added at least 50% increase to the operative time. Specimens None Indications This is a 65-year-old male who presents with above-mentioned diagnosis after failing since course of nonoperative care is here for surgical invention. Description of Procedure Patient met with identified informed consent obtained. Patient was then taken to the operative suite underwent a patient placed in a prone position the Sotero table total spine frame. All bony prominences well-padded eyes inspected to ensure no external pressure placed upon the. This point the lumbar spine was prepped and draped in a sterile fashion. Sharp dissection with the assistance of Bovie cautery is performed down to and exposing the lamina and transverse processes of L2 L3-L4-L5 bilaterally. From caudal cephalad fashion complete laminectomy of L5 L4 and L3 was performed including bilateral medial facetectomies and foraminotomies addressing severe spinal stenosis. Pedicle screw was then placed in L2 L3-L4-L5 bilaterally with assistance of fluoroscopy and the proper sized skylar placed. By way of a transforaminal portion right complete discectomy of L4-5 was performed endplates curetted to subcortically bone and a 11 x 26 mm peek cage filled with I factor tapped in position. Then proceeded L3-L4 and again by way of a transforaminal approach on right a complete discectomy was performed endplates curetted to subcortical being bone and again 11 x 26 mm peek cage filled with I factor tapped in position. The rods were then locked in final position bilaterally. The transverse processes of L2-L3 L4-5 burred to subcortical bleeding bone. Infuse collagen sponge master graft local autograft was placed in the posterior gutters. 15 round LEONCIO drain inserted. The incision was then closed with 1 Vicryl the fascia 2-0 Vicryl subcutaneously and 4 Monocryl for final skin closure. Steri-Strip sterile dressings placed. Patient will continue PACU stable condition. Please note spinal cord monitoring was utilized at the procedure no changes noted. Lastly Carmelita Portillo was present at the entire procedure involved the patient positioning complex portions of the surgery and final skin closure. I attest to the content of the Intraoperative Record and any orders documented therein. Any exceptions are noted below.
--- NOTE | 2021-03-03 10:35 | Fluoroscopy Report ---
FL lumbar spine 2-3V CLINICAL HISTORY: L2-S1 DECOMPRESSION/FUSION/INTERBODY COMPARISON STUDY: None FLUOROSCOPY TIME: 29 seconds. NUMBER OF FLUOROSCOPIC IMAGES: 2 FINDINGS: 2 intraoperative fluoroscopic spot images reveal postsurgical changes of an L2-L5 spinal de compression and fusion. There is evidence for discectomies interbody fusions at the L3-4 and L4-5 lev els. A transitional vertebra cannot be excluded. Accurate numbering is limited due to the limited fie ld-of-view. IMPRESSION: Intraoperative fluoroscopic spot images demonstrating an L2-L5 spinal decompression and fusion. ACT 112: Negative or not required by law. Electronically signed by: Cooper Rivera M.D. 03/03/2021 10:34 AM
--- NOTE | 2021-03-03 11:28 | Anesthesiology Progress Note ---
Date of Service March 03, 2021 Anesthesia Post Procedure Vital Signs Vital Signs: Temp Pulse Pulse Resp BP BP Pulse Ox 03/03/21 11:25 36.6 C 102 H 17 94/63 L 94 03/03/21 11:15 100 H 16 89/65 L 95 03/03/21 11:05 97 H 16 109/63 95 03/03/21 10:55 92 H 15 87/51 L 93 03/03/21 10:47 36.5 C 93 H 13 88/52 L 93 03/03/21 06:43 36.9 C 90 20 131/91 94 Pain Intensity Right Back: Pain Intensity: 8 Transfer of Care Handoff Completed per policy Notes Mental Status: alert / awake / arousable Patient Amnestic to Procedure: Yes Nausea / Vomiting: adequately controlled Pain: adequately controlled Airway Patency, RR, SpO2: stable & adequate BP & HR: stable & adequate Hydration State: stable & adequate Anesthetic Complications: no major complications apparent
[2021-03-03] MEDS ORDERED: METOCLOPRAMIDE HCL INJ 5 MG/ML 2 ML VIAL IV PRN (11:58)
[2021-03-03] MEDS ORDERED: LORazepam 0.5 MG/1 ML VIAL IV PRN (11:58)
[2021-03-03] MEDS ORDERED: LORazepam 0.5 MG TAB PO PRN (11:58)
[2021-03-03] MEDS ORDERED: PROMETHAZINE HCL 12.5 MG in SODIUM CHLORIDE 0.9% 50 ML IV PRN (11:58)
[2021-03-03] MEDS ORDERED: diphenhydrAMINE Capsule 25 MG CAP PO PRN (11:58)
[2021-03-03] MEDS ORDERED: hydrOXYzine HCl 25 MG TAB PO PRN (11:58)
[2021-03-03] MEDS ORDERED: SOD PHOSPHATE/SOD BIPHOSPHATE ENEMA 132 ML BTL PR PRN (11:58)
[2021-03-03] MEDS ORDERED: DO NOT ADMINISTER FLU VACCINE PRN (11:58)
[2021-03-03] MEDS ORDERED: DO NOT ADMINISTER PNEUMOCOCCAL VACCINE PRN (11:58)
[2021-03-03] MEDS ORDERED: ONDANSETRON 4 MG OD TAB PO PRN (11:58)
[2021-03-03] MEDS ORDERED: ALBUTEROL HFA 8 GM INHALER INH PRN (11:58)
[2021-03-03] MEDS ORDERED: ALUMINUM/MAGNESIUM SUSP 30 ML UDC PO PRN (11:58)
[2021-03-03] MEDS ORDERED: FAMOTIDINE 20 MG TAB PO PRN (11:58)
[2021-03-03] MEDS ORDERED: NALOXONE HCL 0.4 MG/1 ML VIAL/CARP IV PRN (11:58)
[2021-03-03] MEDS ORDERED: ACETAMINOPHEN 1,000 MG/100 ML VIAL IV PRN (11:58)
[2021-03-03] MEDS ORDERED: bisacodyL 10 MG SUPP PR PRN (11:58)
[2021-03-03] MEDS ORDERED: ACETAMINOPHEN 500 MG TAB PO PRN (11:58)
[2021-03-03] MEDS ORDERED: HYDROmorphone INJ 1 MG/ML SYRINGE IV PRN (11:58)
[2021-03-03] MEDS ORDERED: HYDROmorphone INJ 0.5 MG/0.5 ML SYR IV PRN (11:58)
[2021-03-03] MEDS ORDERED: traMADol HCL 50 MG TABLET PO PRN (11:58)
[2021-03-03] MEDS ORDERED: MAGNESIUM HYDROXIDE SUSP 30 ML UDC PO PRN (11:58)
[2021-03-03] MEDS ORDERED: PHARMACY GLYCEMIC MGMT CONSULT PRN (12:13)
[2021-03-03] MEDS: SODIUM CHLORIDE 0.9% 1000ML 1,000 ML IV SCH ×3 (12:18→23:55)
[2021-03-03] MEDS ORDERED: CARBOHYDRATES FOR HYPOGLYCEMIA PO PRN (12:30)
[2021-03-03] MEDS ORDERED: GLUCOSE 10 TABS/TUBE PO PRN (12:30)
[2021-03-03] MEDS ORDERED: NovoLIN-N (NPH) PER UNIT CHARGE SQ ONE (12:30)
[2021-03-03] MEDS ORDERED: GLUCOSE 40% GEL 15 GM TUBE PO PRN (12:30)
[2021-03-03] MEDS ORDERED: GLUCAGON FOR INJ 1 MG VIAL IM PRN (12:30)
[2021-03-03] MEDS ORDERED: DEXTROSE 50% 50 ML SYRINGE IV PRN (12:30)
[2021-03-03] MEDS: INSULIN ASPART 100 UNITS/ML 3 ML PEN SC SCH ×3 (12:54→21:54)
--- NOTE | 2021-03-03 13:10 | Pharmacy Report ---
Pharmacy Glycemic Short Note 2 - Date of Service March 03, 2021 - Glycemic Short BSG Results (Last 24 hours): 03/03/21 03/03/21 03/03/21 06:25 10:51 12:26 POC Glucose 134 H 162 H 179 H OUTPATIENT ANTIDIABETIC REGIMEN: * Metformin 500 mg PO BIDM * HbA1c: 6.7% (02/17/21) ASSESSMENT: * WH is a 65 year old male POD #0 s/p L2-S1 decompression/fusion * Received dexamethasone 4 mg IV x 1 in OR * Preop BSG of 134 mg/dL, postop BSG of 179 mg/dL * Will give one-time NPH dose to cover steroids and utilize aggressive Novolog parameters PLAN FOR INPATIENT GLYCEMIC CONTROL: * Hold outpatient oral diabetes medications * Consider restarting metformin prior to discharge * Basal insulin * NPH 35 units (~0.4 unit/kg) SC x 1 * Bolus insulin * NovoLog per scale ACHS or Q6hrs while NPO * Goal Range: Low 110 mg/dL - High 140 mg/dL * Correction Factor: 15 mg/dL/unit * Nutritional / Prandial insulin per carb ratio of 1 unit per 6 grams CHO consumed PLAN FOR DISCHARGE: * HbA1c of 6.7% suggests excellent outpatient glycemic control * Continue metformin 500 mg PO BIDM
[2021-03-03] MEDS: ceFAZolin 2000MG 2,000 MG/15 ML SYR IV SCH ×2 (17:25→23:55)
--- NOTE | 2021-03-03 18:02 | Internal Medicine Consult Note ---
Date of Consultation March 03, 2021 Assessment & Plan (1) Neurogenic claudication due to lumbar spinal stenosis: (2) Hypertension: (3) Hyperlipidemia: (4) Diabetes mellitus: (5) Fatty liver: Currently Hypotensive Resume Post Op Care per Surgery Protocol Incentive Spirometry 10x per Hour Resume Relative Home Meds Where Appropriate PT/OT with appropriate fall precautions Transition from IV to PO Pain control DVT Prophylaxis Per Surgery Protocol Monitor Daily Labs Will follow along c Dr Mahogany LUDWIG in 2-3 days. History of Present Illness Reason for Consultation: Medical Management for HTN, DM II Requesting Physician: Dr Jaxson Vides Attending Physician: Musa Vides, DO History of Present Illness 65 yo male c PMH RUE Defect, HTN, HLD, DM II, and fatty liver saw Dr Vides as an outpatient for Back Pain, Studies revealed Neurogenic Claudication secondary to Lumbar Spinal Stenosis. He was taken to the OR today by Dr Vides who performed a #1 lumbar decompression with bilateral medial facetectomies and foraminotomies L 2 L3, L3-L4, L4-L5. #2 posterior spinal fusion L2-L5. #3 placement posterior segmental instrumentation L2-L5. #4 interbody fusion L3-4 L4-5. #5 placement peek cage 11 x 26 mm at L3-4 L4-5. #6 placement locally harvested morselized autograft in the posterior gutters. #7 placement infuse collagen sponge, master graft in the posterior gutters and I factor and interbody spaces. We were consulted for medical management of his DM, HTN, and HLD. He was seen by me in his room. He was eating Dinner and was comfortable. Denied LE pain or numbness. Allergies Allergy/AdvReac Type Severity Reaction Status Date / Time No Known Allergies Allergy Verified 03/03/21 06:37 Home Medications Medication Instructions Recorded Confirmed Type albuterol sulfate 1 inh INHALATION QID PRN 01/28/21 03/03/21 History allopurinol 300 mg PO QAM 01/28/21 03/03/21 History aspirin [Aspir-81] 81 mg PO PM 01/28/21 03/03/21 History duloxetine 60 mg PO QAM 01/28/21 03/03/21 History fenofibrate nanocrystallized 48 mg PO QAM 01/28/21 03/03/21 History fluticasone furoate-vilanterol 1 inh INHALATION PM 01/28/21 03/03/21 History [Breo Ellipta] gabapentin 100 mg PO BID 01/28/21 03/03/21 History lisinopril 20 mg PO QAM 01/28/21 03/03/21 History metformin 500 mg PO BID 01/28/21 03/03/21 History pravastatin 10 mg PO PM 01/28/21 03/03/21 History tamsulosin 0.4 mg PO PM 01/28/21 03/03/21 History Patient History Medical History Anxiety Asthma well controlled BPH (benign prostatic hyperplasia) Diabetes mellitus, type 2 NIDDM Diverticular disease GERD (gastroesophageal reflux disease) "mild" Gout Hyperlipidemia Hypertension Kidney stone Passed without intervention Sleep apnea CPAP Surgical History History of carpal tunnel release Left History of colonoscopy History of fusion of cervical spine History of surgery on arm Multiple to right arm (r/t defect) History of tooth extraction Hx of inguinal hernia repair Hx of skin graft Abdominal skin placed to right hand (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) Family History (Updated 03/03/21 @ 18:11 by Hari Rowley DO) Mother Diabetes Cancer Liver Cancer Father Lung cancer Brother Lung cancer Social History Smoking Status: Current every day smoker Cigarettes Per Day: 4 cigs/day (intermittent use x several years); Second Hand Exposure: No; Do You Dip or Chew Tobacco: No; Tobacco Cessation Education Requested by Patient: No Hx Alcohol Use: No Hx Substance Use: No Preferred Language: Maltese Communication Ability: Effective 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 Beliefs That Will Affect Care: None Current Living Situation: Spouse Other Information That Helps Us Care for You: No Feels Safe at Home: Yes Safety Concerns: Feels Safe At This Time Assistive Devices: Walker Review of Systems Review of Systems: ROS-No Headache, No Visual Changes, No Nausea, No Vomiting, No Fever, No Chills, No Neck Pain or Stiffness, No Chest Pain, No Palpitations, No SOB, No TA, No Cough, No Sputum, No Wheezing, No Abdominal Pain, No Diarrhea, No Hematemesis, No Hemoptysis, No Unexpected Weight Loss, No Flank pain, No Melena, No Hematochezia, No Frequency, No Urgency, No Burning, No Hematuria, No Rashes, No Diaphoresis. Appetite is Normal, Sore Back Physical Exam Physical Exam: Physical Exam Gen-AAO x 3, NAD, Afebrile Head-NCAT, EOMI, PERRLA, Anicteric Sclera, No Posterior Pharyngeal Erythema Neck-Supple, No JVD, No Thyromegaly, No Masses, No LAD, No Bruits Lungs-Clear to Auscultation Bilaterally, No Rales, No Rhonchi, No Wheezing, No Crepitus Chest-No S4, +S1, +S2, No S3, No Murmurs, No Rubs, No Gallops, No Ectopy Abdomen-Soft, Bowel Sounds Present, Non Tender, Non Distended, No Hepatomegaly, No Splenomegaly, No Palpable Masses, No Rebound, No Rigidity, No Guarding Musculoskeletal-Full Range of Motion Bilaterally, No CVAT, Sore c Movement Extremities-No Cyanosis, No Clubbing, No Edema, Deformed RUE (Congenital) Nuero-Cranial Nerves II-XII grossly intact, Motor WNL, DTRs WNL, Strength WNL, Non Focal Psych-Normal Mood Results & Data ([facility]) Vital Signs (Past 12 Hours) Vital Signs Temp Pulse Pulse Resp BP BP Pulse Ox 03/03/21 15:10 36.6 C 87 18 91/63 L 91 03/03/21 13:48 36.4 C L 98 H 18 106/55 L 92 03/03/21 12:44 36.8 C 105 H 18 90/53 L 94 03/03/21 12:15 36.7 C 107 H 18 103/69 93 03/03/21 11:45 36.8 C 109 H 18 108/58 L 95 03/03/21 11:35 97 H 17 134/83 95 03/03/21 11:25 36.6 C 102 H 17 94/63 L 94 03/03/21 11:15 100 H 16 89/65 L 95 03/03/21 11:05 97 H 16 109/63 95 03/03/21 10:55 92 H 15 87/51 L 93 03/03/21 10:47 36.5 C 93 H 13 88/52 L 93 03/03/21 06:43 36.9 C 90 20 131/91 94 Current Diagnoses Spinal stenosis, lumbar region with neurogenic claudication (04/06/21) Encounter for other preprocedural examination (03/03/21) Allergies No Known Allergies Allergy (Verified 03/03/21 06:37) Height/Weight/Isolation Height 5 ft 7 in Weight 96.524 kg
[2021-03-03] MEDS: FLUTICASONE/VILANTEROL 100/25MCG 14 PUFFS/INHALER INH SCH (20:42)
[2021-03-03] MEDS: PRAVASTATIN SOD 10 MG TAB PO SCH (20:43)
[2021-03-03] MEDS: GABAPENTIN 100 MG CAP PO SCH (20:43)
[2021-03-03] MEDS: DOCUSATE SODIUM/SENNA 50/8.6MG TAB PO SCH (20:43)
[2021-03-03] MEDS: TAMSULOSIN HCL 0.4 MG CAP PO SCH (20:43)
[2021-03-03] MEDS: ASPIRIN 81 MG ECTAB PO SCH (20:43)
[2021-03-04] MEDS ORDERED: INSULIN ASPART 100 UNITS/ML 3 ML PEN SC SCH
[2021-03-04] MEDS: POLYETHYLENE (MIRALAX) 17 GM PACK PO SCH ×2 (05:40→11:51)
[2021-03-04] MEDS: oxyCODONE HCL IR 5 MG TAB (IMMEDIATE RELEASE) PO PRN ×4 (05:43→20:54)
[2021-03-04 07:02] LABS: Basophils # (auto) 0.01 K/uL (0-0.2); Basophils % (auto) 0.1 %; Eosinophils # (auto) 0.01 K/uL (0-0.5); Eosinophils % (auto) 0.1 %; Hematocrit (blood only) 31.4 % (42-52); Hemoglobin 10.6 g/dL (14.0-18.0); Immature Granulocytes # (auto) 0.03 K/uL (0.00-0.02); Immature Granulocytes % (auto) 0.3 %; Lymphocytes % (auto) 14.1 %; Mean Corpuscular Hemoglobin 30.5 pg (25-34); Mean Corpuscular Hgb Conc 33.8 g/dL (32-36); Mean Corpuscular Volume 90.2 fL (80-100); Mean Platelet Volume 11.4 fL (7.4-10.4); Monocytes # (auto) 1.03 K/uL (0.11-0.59); Monocytes % (auto) 11.2 %; Neutrophils # (auto) 6.82 K/uL (1.4-6.5); Neutrophils % (auto) 74.2 %; Platelet Count 125 K/uL (130-400); RDW Coefficient of Variation 14.9 % (11.5-14.5); RDW Standard Deviation 48.7 fL (36.4-46.3); Red Blood Count 3.48 M/uL (4.7-6.1)
[2021-03-04 07:32] LABS: BUN Creatinine Ratio 11.7 (10-20); Calcium 7.7 mg/dl (8.5-10.1); Creatinine Clr Calc Pharmacy 47.1 ml/min; Est GFR (Non-African American) 40.5; Potassium 4.6 mmol/L (3.5-5.1)
[2021-03-04] MEDS ORDERED: INSULIN GLARGINE SOLOSTAR 100 UNITS/ML 3 ML PEN SC SCH (09:00)
[2021-03-04] MEDS: DULoxetine HCL 60 MG CAP PO SCH (09:05)
[2021-03-04] MEDS: lisinopril 20 MG TAB PO SCH (09:05)
[2021-03-04] MEDS: GABAPENTIN 100 MG CAP PO SCH ×2 (09:05→20:56)
[2021-03-04] MEDS: allopurinoL 300 MG TAB PO SCH (09:06)
[2021-03-04] MEDS: FENOFIBRATE NANOCRYSTALLIZED 48 MG TABLET PO SCH (09:06)
[2021-03-04] MEDS: INSULIN ASPART 100 UNITS/ML 3 ML PEN SC SCH ×4 (09:09→21:03)
--- NOTE | 2021-03-04 09:22 | Pharmacy Report ---
Pharmacy Glycemic Short Note 2 - Date of Service March 04, 2021 - Glycemic Short BSG Results (Last 24 hours): 03/03/21 03/03/21 03/03/21 10:51 12:26 17:06 Glucose POC Glucose 162 H 179 H 179 H 03/03/21 03/03/21 03/04/21 20:41 23:53 06:43 Glucose 137 H POC Glucose 140 H 85 03/04/21 08:08 Glucose POC Glucose 129 H OUTPATIENT ANTIDIABETIC REGIMEN: * Metformin 500 mg PO BIDM * HbA1c: 6.7% (02/17/21) ASSESSMENT: 03/04: * BSGs postoperatively, 179, 140, and 85 mg/dL * Fasting BSG of 129 mg/dL this morning * SCr of 1.73 mg/dL - will hold off on restarting metformin at this time * No steroids ordered for today - will loosen Novolog today and use once daily Lantus in place of metformin 03/03: * WH is a 65 year old male POD #0 s/p L2-S1 decompression/fusion * Received dexamethasone 4 mg IV x 1 in OR * Preop BSG of 134 mg/dL, postop BSG of 179 mg/dL * Will give one-time NPH dose to cover steroids and utilize aggressive Novolog parameters PLAN FOR INPATIENT GLYCEMIC CONTROL: * Hold outpatient oral diabetes medications * Consider restarting metformin prior to discharge if renal function improves * Basal insulin * Lantus 15 units SC x 1 * Reassess tomorrow * Bolus insulin * NovoLog per scale ACHS or Q6hrs while NPO * Goal Range: Low 110 mg/dL - High 140 mg/dL * Correction Factor: 25 mg/dL/unit * Nutritional / Prandial insulin per carb ratio of 1 unit per 8 grams CHO consumed PLAN FOR DISCHARGE: * HbA1c of 6.7% suggests excellent outpatient glycemic control * Continue metformin 500 mg PO BIDM
--- NOTE | 2021-03-04 13:54 | Orthopedic Progress Note ---
Date of Service March 03, 2021 Assessment & Plan Admission and Anticipated Discharge Date Admission Date: March 03, 2021 Results & Data ([facility]) Vital Signs (Past 12 Hours) Vital Signs Temp Pulse Pulse Resp BP BP Pulse Ox 03/03/21 12:44 36.8 C 105 H 18 90/53 L 94 03/03/21 11:35 97 H 17 134/83 95 03/03/21 11:25 36.6 C 102 H 17 94/63 L 94 03/03/21 11:15 100 H 16 89/65 L 95 03/03/21 11:05 97 H 16 109/63 95 03/03/21 10:55 92 H 15 87/51 L 93 03/03/21 10:47 36.5 C 93 H 13 88/52 L 93 03/03/21 06:43 36.9 C 90 20 131/91 94
--- NOTE | 2021-03-04 13:55 | Orthopedic Progress Note ---
Date of Service March 04, 2021 Assessment & Plan (1) Neurogenic claudication due to lumbar spinal stenosis: Admission and Anticipated Discharge Date Admission Date: March 03, 2021 At this time continue physical therapy monitor LEONCIO output hopefully discharge home in next few days. Subjective Patient's back pain is controlled leg symptoms markedly improved. Physical Exam Physical Exam: On physical exam he is in the chair at the bedside. Is good strength testing. Appears comfortable. Results & Data ([facility]) Vital Signs (Past 12 Hours) Vital Signs Temp Pulse Resp BP Pulse Ox 03/04/21 11:47 36.9 C 82 18 104/51 L 93 03/04/21 07:26 37.0 C 92 H 20 104/57 L 93 03/04/21 03:41 36.8 C 96 H 22 115/66 92
--- NOTE | 2021-03-04 15:41 | Hospitalist Progress Note ---
Date of Service March 04, 2021 Assessment & Plan (1) Neurogenic claudication due to lumbar spinal stenosis: (2) Hypertension: (3) Hyperlipidemia: (4) Diabetes mellitus: (5) Fatty liver: Pain control/DVT prophylaxis as per primary team. Incentive Spirometry 10x per Hour. 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 Hemodynamically patient is doing fine. Hemoglobin at 10.6. Continue to work with PT/OT. Will follow along cyndi Vides DC in 2-3 days. Admission and Anticipated Discharge Date Admission Date: March 03, 2021 Subjective Doing okay this morning. Currently pain is well controlled. Hemodynamically doing fine. Review of system is negative. Have not had a bowel movement yet. Review of Systems Review of Systems: All systems reviewed & are unremarkable except as noted in HPI & below Physical Exam Physical Exam: General: A&Ox3 HENT: NCAT, MMM, EOMI Eyes: PERRLA Neck: Supple, normal range of motion CVS: normal rate and rhythm Resp: b/l breath sound Abdomen: Soft, ND/NT, +BS Extremities: No c/c/e Neuro: face symmetric, absence of any gross focal deficit Skin: warm and dry, no rashes/lesions/errythema MSK: Back dressings intact, in place Results & Data Results & Data ([facility]) Vital Signs (Past 12 Hours) Vital Signs Temp Pulse Resp BP Pulse Ox 03/04/21 14:41 36.7 C 88 18 116/63 94 03/04/21 11:47 36.9 C 82 18 104/51 L 93 03/04/21 07:26 37.0 C 92 H 20 104/57 L 93 03/04/21 03:41 36.8 C 96 H 22 115/66 92
[2021-03-04] MEDS: ASPIRIN 81 MG ECTAB PO SCH (20:55)
[2021-03-04] MEDS: TAMSULOSIN HCL 0.4 MG CAP PO SCH (20:55)
[2021-03-04] MEDS: DOCUSATE SODIUM/SENNA 50/8.6MG TAB PO SCH (20:55)
[2021-03-04] MEDS: FLUTICASONE/VILANTEROL 100/25MCG 14 PUFFS/INHALER INH SCH (20:55)
[2021-03-04] MEDS: PRAVASTATIN SOD 10 MG TAB PO SCH (20:56)
[2021-03-05] MEDS: oxyCODONE HCL IR 5 MG TAB (IMMEDIATE RELEASE) PO PRN ×3 (04:21→20:44)
[2021-03-05] MEDS: dexAMETHasone 8 MG in SYRINGE 0 ML IV SCH (07:34)
[2021-03-05] MEDS: lisinopril 20 MG TAB PO SCH (07:35)
[2021-03-05] MEDS: DULoxetine HCL 60 MG CAP PO SCH (07:35)
[2021-03-05] MEDS: allopurinoL 300 MG TAB PO SCH (07:35)
[2021-03-05] MEDS: FENOFIBRATE NANOCRYSTALLIZED 48 MG TABLET PO SCH (07:36)
[2021-03-05] MEDS: GABAPENTIN 100 MG CAP PO SCH ×2 (07:36→20:44)
[2021-03-05] MEDS: INSULIN ASPART 100 UNITS/ML 3 ML PEN SC SCH ×4 (07:40→22:08)
--- NOTE | 2021-03-05 07:46 | Pharmacy Report ---
Pharmacy Glycemic Short Note 2 - Date of Service March 05, 2021 - Glycemic Short BSG Results (Last 24 hours): 03/04/21 03/04/21 03/04/21 08:08 12:26 17:11 POC Glucose 129 H 100 H 111 H 03/04/21 03/05/21 20:57 06:53 POC Glucose 117 H 119 H OUTPATIENT ANTIDIABETIC REGIMEN: * Metformin 500 mg PO BIDM * HbA1c: 6.7% (02/17/21) ASSESSMENT: 03/05: * BSGs well controlled over last 24 hrs * 32 units SQ insulin given in last 24 hrs, while tolerating a diet * High dose IV steroids will begin today (dexamethasone 8mg IV daily), will dc Lantus and begin NPH for basal coverage * Will adjust Novolog doses to allow for greater meal-time doses in light of steroid use 03/04: * BSGs postoperatively, 179, 140, and 85 mg/dL * Fasting BSG of 129 mg/dL this morning * SCr of 1.73 mg/dL - will hold off on restarting metformin at this time * No steroids ordered for today - will loosen Novolog today and use once daily Lantus in place of metformin 03/03: * WH is a 65 year old male POD #0 s/p L2-S1 decompression/fusion * Received dexamethasone 4 mg IV x 1 in OR * Preop BSG of 134 mg/dL, postop BSG of 179 mg/dL * Will give one-time NPH dose to cover steroids and utilize aggressive Novolog parameters PLAN FOR INPATIENT GLYCEMIC CONTROL: * Hold outpatient oral diabetes medications * Consider restarting metformin prior to discharge if renal function improves * Basal insulin * DC Lantus * NPH 35 units SQ x 1 with AM dexamethasone IV * Reassess tomorrow * Bolus insulin * NovoLog per scale ACHS or Q6hrs while NPO * Goal Range: Low 110 mg/dL - High 140 mg/dL * Correction Factor: 15 mg/dL/unit * Nutritional / Prandial insulin per carb ratio of 1 unit per 7 grams CHO consumed PLAN FOR DISCHARGE: * HbA1c of 6.7% suggests excellent outpatient glycemic control * Continue metformin 500 mg PO BIDM
[2021-03-05] MEDS ORDERED: NovoLIN-N (NPH) PER UNIT CHARGE SQ ONE (09:00)
--- NOTE | 2021-03-05 11:11 | Orthopedic Progress Note ---
Date of Service March 05, 2021 Assessment & Plan (1) Neurogenic claudication due to lumbar spinal stenosis: Admission and Anticipated Discharge Date Admission Date: March 03, 2021 This time we will continue physical therapy monitor his LEONCIO output anticipate discharge home tomorrow. Subjective Back pain controlled leg pain improved Physical Exam Physical Exam: Patient is good strength testing is comfortable. Results & Data ([facility]) Vital Signs (Past 12 Hours) Vital Signs Temp Pulse Resp BP Pulse Ox 03/05/21 07:02 37.3 C 96 H 22 102/66 93
--- NOTE | 2021-03-05 12:23 | Hospitalist Progress Note ---
Date of Service March 05, 2021 Assessment & Plan (1) Neurogenic claudication due to lumbar spinal stenosis: (2) Hypertension: (3) Hyperlipidemia: (4) Diabetes mellitus: (5) Fatty liver: No new issues. Did have a bowel movement. Hemodynamically doing fine. Pain control/DVT prophylaxis as per primary team. Incentive Spirometry 10x per Hour. 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 Hemodynamically patient is doing fine. Hemoglobin at 10.6. Continue to work with PT/OT. Will follow along c Dr Mahogany LUDIWG in 2-3 days. Admission and Anticipated Discharge Date Admission Date: March 03, 2021 Subjective Doing okay overall. Reports pain is well controlled. Did have a bowel movement. Rest of the review of system is negative. Review of Systems Review of Systems: All systems reviewed & are unremarkable except as noted in HPI & below Physical Exam Physical Exam: General: A&Ox3 HENT: NCAT, MMM, EOMI Eyes: PERRLA Neck: Supple, normal range of motion CVS: normal rate and rhythm Resp: b/l breath sound Abdomen: Soft, ND/NT, +BS Extremities: No c/c/e Neuro: face symmetric, absence of any gross focal deficit Skin: warm and dry, no rashes/lesions/errythema MSK: Back dressings intact, in place Results & Data Results & Data ([facility]) Vital Signs (Past 12 Hours) Vital Signs Temp Pulse Resp BP Pulse Ox 03/05/21 07:02 37.3 C 96 H 22 102/66 93
[2021-03-05] MEDS: ASPIRIN 81 MG ECTAB PO SCH (20:44)
[2021-03-05] MEDS: FLUTICASONE/VILANTEROL 100/25MCG 14 PUFFS/INHALER INH SCH (20:44)
[2021-03-05] MEDS: PRAVASTATIN SOD 10 MG TAB PO SCH (20:44)
[2021-03-05] MEDS: TAMSULOSIN HCL 0.4 MG CAP PO SCH (20:44)
[2021-03-05] MEDS: DOCUSATE SODIUM/SENNA 50/8.6MG TAB PO SCH (20:46)
[2021-03-06] MEDS ORDERED: NovoLIN-N (NPH) PER UNIT CHARGE SQ ONE (08:30)
[2021-03-06] MEDS: GABAPENTIN 100 MG CAP PO SCH (08:42)
[2021-03-06] MEDS: allopurinoL 300 MG TAB PO SCH (08:42)
[2021-03-06] MEDS: DULoxetine HCL 60 MG CAP PO SCH (08:43)
[2021-03-06] MEDS: FENOFIBRATE NANOCRYSTALLIZED 48 MG TABLET PO SCH (08:43)
--- NOTE | 2021-03-06 08:54 | Hospitalist Progress Note ---
Date of Service March 06, 2021 Assessment & Plan (1) Neurogenic claudication due to lumbar spinal stenosis: - POD #3 s/p lumbar decompression fusion with bilateral medial facetectomies and foamiotomies L2-L5 with cage placement by Dr Vides on 03/03/21. - Pain management, bowel regimen and DVT ppx per the primary team - PT/OT consults - Follow am CBC to monitor for acute blood loss - LEONCIO drain lower back had 140 mL outs in past 24 hours, monitor. - Incentive spirometry (2) BPH (benign prostatic hyperplasia): - Hx of such, continue flomax, likely adding to urinary retention (3) Urinary retention: - Required straight cath today - out 825 and was bladder scanned for 738 mL at 0334. - Encourage oral hydration - Bladder scan q8H and straight cath for > 450 mL. - Consider urology consult ( has followed with [facility] in [place] previously) and moser placement if remains unable to fully void. (4) Hypertension: - BP slightly lower this morning at 96/61, will hold lisinopril today (5) Hyperlipidemia: - Cont pravastatin 10 mg qpm (6) Diabetes mellitus: - Glycemic pharmacy consulted, ISS with accuchecks. Holding home metformin. (7) Fatty liver: - Noted, chronic DVT ppx: teds, asa 81 mg daily, no formal chemical anticoagulation s/p spinal surgery CODE: Full Dispo: From home, possible dc today per primary team. Admission and Anticipated Discharge Date Admission Date: March 03, 2021 Supervising Physician Co-Signing Physician Notes Attending Addendum: care coordinated with KAYLA Pop. please refer to her notes for full details, I agree with her notes I was unable to see the patient at bedside but was able to review the chart in the morning, including VS, labs, notes and discuss the assessment and plan of care ASSESSMENT AND PLAN URINARY RETENTION continue Moser Cath, Flomax monitor closely HTN BP on the lower side hold Lisinopril follow closely other diagnoses and plan of care as per KAYLA Pop notes. Anatoly Cintron MD Subjective The patient was seen and examined this morning. He needed straight cathed this morning because he couldn't empty his bladder completely, reports scanned and was full. Overnight he awoke and was soaked this morning. He also had issues throughout yesterday where he was "leaking" and was wet intermittently. Pt has been able to void small amounts this morning since eating breakfast and drinking 2 mugs full of water. Pt denies having this occur in the past. Pt admits to hx of BPH and takes flomax at baseline. + BM yesterday, tolerating diet without difficulty. Reports some pain in the left hip and left knee which improves with movement, and improved compared to yesterday. Discussed this with Dr. Vides and thought may be related to body position during procedure. Review of Systems Review of Systems: Constitutional: No fever, sweats or chills Eyes: No diplopia, no worsening or blurred vision ENT: normal hearing, no trouble swallowing Respiratory: No cough, sputum, dyspnea at rest or on exertion Cardiovascular: No chest pain, tightness or palpitations Abdomen: No pain, nausea, vomiting, diarrhea or constipation : as per HPI. Musculoskeletal: + left hip and left knee joint pain improving, no calf pain, no swelling Neurologic: No weakness, numbness/tingling, or balance problems Psychiatric: No anxiety or depression Skin: No rash or itch Physical Exam Physical Exam: General: awake, alert, no apparent distress Head: Normocephalic, atraumatic ENT: PERRL, EOMI, no pharyngeal exudate, mucous membranes moist Chest: Clear to auscultation, on room air, no adventitious breath sounds Cardiac: Regular rate and rhythm, no murmur, no JVD, normal peripheral pulses, good capillary refill Abdominal: NABS x 4 quadrants, soft, nondistended, nontender to palpation, no rebound or guarding Back: dressing c/d/i, LEONCIO drain in place with serosangionous liquid, 140 mL out in past 24 hrs. Extremities: R forearm defect s/p multiple surgeries >50years ago as a child. Otherwise Normal inspection, no peripheral edema or erythema, calfs nontender to palpation Psych: Normal mood and affect Neuro: AAO x 3, strength intact bilaterally and rated 5/5, no motor deficits, speech is clear, no peripheral sensory deficits Results & Data Results & Data ([facility]) Vital Signs (Past 12 Hours) Vital Signs Temp Pulse Resp BP Pulse Ox 03/06/21 06:03 36.8 C 65 18 96/61 L 96 03/05/21 22:41 36.9 C 83 20 117/69 94
[2021-03-06 08:55] LABS: Eosinophils # (auto) 0.01 K/uL (0-0.5); Eosinophils % (auto) 0.1 %; Hematocrit (blood only) 32.5 % (42-52); Hemoglobin 10.9 g/dL (14.0-18.0); Immature Granulocytes # (auto) 0.04 K/uL (0.00-0.02); Immature Granulocytes % (auto) 0.2 %; Lymphocytes # (auto) 1.37 K/uL (1.2-3.4); Lymphocytes % (auto) 8.5 %; Mean Corpuscular Hemoglobin 30.3 pg (25-34); Mean Corpuscular Hgb Conc 33.5 g/dL (32-36); Mean Corpuscular Volume 90.3 fL (80-100); Mean Platelet Volume 11.9 fL (7.4-10.4); Monocytes # (auto) 1.23 K/uL (0.11-0.59); Monocytes % (auto) 7.7 %; Neutrophils # (auto) 13.38 K/uL (1.4-6.5); Neutrophils % (auto) 83.5 %; Platelet Count 145 K/uL (130-400); RDW Coefficient of Variation 14.4 % (11.5-14.5); RDW Standard Deviation 47.9 fL (36.4-46.3); White Blood Count 16.03 K/uL (4.8-10.8)
[2021-03-06 09:09] LABS: BUN Creatinine Ratio 20.6 (10-20); Calcium 9.2 mg/dl (8.5-10.1); Creatinine Clr Calc Pharmacy 51.6 ml/min; Est GFR (African American) 52.4; Est GFR (Non-African American) 45.2; Potassium 4.2 mmol/L (3.5-5.1)
[2021-03-06] MEDS: dexAMETHasone 8 MG in SYRINGE 0 ML IV SCH (09:26)
[2021-03-06] MEDS: INSULIN ASPART 100 UNITS/ML 3 ML PEN SC SCH ×2 (09:27→13:32)
[2021-03-06] MEDS: oxyCODONE HCL IR 5 MG TAB (IMMEDIATE RELEASE) PO PRN (12:11)
--- NOTE | 2021-03-06 13:08 | Pharmacy Report ---
Pharmacy Glycemic Short Note 2 - Date of Service March 06, 2021 - Glycemic Short BSG Results (Last 24 hours): 03/05/21 03/05/21 03/06/21 17:18 21:19 07:59 Glucose POC Glucose 135 H 136 H 144 H 03/06/21 03/06/21 08:14 12:02 Glucose 123 H POC Glucose 78 OUTPATIENT ANTIDIABETIC REGIMEN: * Metformin 500 mg PO BIDM * HbA1c: 6.7% (02/17/21) ASSESSMENT: 03/06 * BSGs well controlled over the last 24 hours with 56 units of insulin- 119/119/135/136 mg/dL * Fasting this AM 144 mg/dL, patient received NPH with dexamethasone yesterday, will monitor if long acting needed if fasting trends upward, utilized NPH again this morning * Slightly loosened novolog parameters, will tighten again if needed 03/05: * BSGs well controlled over last 24 hrs * 32 units SQ insulin given in last 24 hrs, while tolerating a diet * High dose IV steroids will begin today (dexamethasone 8mg IV daily), will dc Lantus and begin NPH for basal coverage * Will adjust Novolog doses to allow for greater meal-time doses in light of steroid use 03/04: * BSGs postoperatively, 179, 140, and 85 mg/dL * Fasting BSG of 129 mg/dL this morning * SCr of 1.73 mg/dL - will hold off on restarting metformin at this time * No steroids ordered for today - will loosen Novolog today and use once daily Lantus in place of metformin 03/03: * WH is a 65 year old male POD #0 s/p L2-S1 decompression/fusion * Received dexamethasone 4 mg IV x 1 in OR * Preop BSG of 134 mg/dL, postop BSG of 179 mg/dL * Will give one-time NPH dose to cover steroids and utilize aggressive Novolog parameters PLAN FOR INPATIENT GLYCEMIC CONTROL: * Hold outpatient oral diabetes medications * Consider restarting metformin prior to discharge if renal function improves * Basal insulin * NPH 35 units SQ x 1 with AM dexamethasone IV * Reassess tomorrow * Bolus insulin * NovoLog per scale ACHS or Q6hrs while NPO * Goal Range: Low 110 mg/dL - High 140 mg/dL * Correction Factor: 20 mg/dL/unit * Nutritional / Prandial insulin per carb ratio of 1 unit per 8 grams CHO consumed PLAN FOR DISCHARGE: * HbA1c of 6.7% suggests excellent outpatient glycemic control * Continue metformin 500 mg PO BIDM
--- NOTE | 2021-03-06 14:06 | Discharge Summary ---
Date of Service March 06, 2021 Admission HPI Per Admitting Provider This is a 65-year-old male presents with chronic persistent back and leg pain failing conservative course of nonoperative care is here for surgical invention. Principal Diagnosis Lumbar spinal stenosis with neurogenic claudication Discharge Data Allergies Allergy/AdvReac Type Severity Reaction Status Date / Time No Known Allergies Allergy Verified 03/03/21 06:37 Consultations 03/03/21 11:58 Consult Hospitalist Routine Procedures Performed Operation Date: 03/03/21 07:45 Actual Procedures p L2-S1 Decompression and Fusion with Insertion of Interbody, Application of Bone Morphogenetic Protein, Spinal Cord Monitoring(Not Applicable) - Musa Vides DO Ordered Studies 03/03/21 07:45 FL fluoroscopy <1hr Routine FL lumbar spine 2-3V Routine Hospital Course (1) Neurogenic claudication due to lumbar spinal stenosis: Patient went lumbar decompression fusion tolerated well taken to orthopedic floor postoperatively postop and was up and ambulating progressed to postop day #2 on postop day 3 back pain was controlled leg pain improved LEONCIO drain decreased appropriately. Struggling with some urinary retention with Morales was placed but with subsequent discharge home. Discharge orders instructions from the chart for further review. Total Time Total Time Spent Total Time Spent (In Minutes): 20 minutes Discharge Plan Discharge Items Patient Disposition: Home - Self-Care Reason For Visit: Spinal Stenosis, Lumbar Region without Neurogenic Discharge Diagnosis: Lumbar spinal stenosis with neurogenic claudication Activity: As commented below Non-emergency contact: Primary Care Provider Call non-emergency contact if: you have any medication questions Follow-up/Referrals: Leida Barba CRNP [Primary Care Provider] - Diet: Regular Addtl Attending Provider Instructions: ACTIVITY RECOMMENDATIONS: SELF CARE INSTRUCTIONS AFTER THORACIC/LUMBAR FUSIONS 1. You may walk to your tolerance. It is good exercise for your legs and back. Expect some back and intermittent leg aches and pains. 2. You may perform "counter-top" level activities (make a sandwich, chato with a project, etc.). 3. No bending or lifting of more than 10 pounds or back twisting of any nature (roll like a log when turning in bed). 4. You may ride in a car for 20-30 minutes at a time. No driving until after your first visit with your doctor. 5. Frequent changes of position and restricting sitting to 30 minutes at a time will help limit the amount of back spasms and stiffness you may experience. 6. You may discontinue the use of ambulatory aids (cane, crutches, etc.) once your strength and confidence allow. 7. You may assurance engineer the shower and let water strike your incision when you arrive home at least once daily. Do not take a tub bath, sit in a hot tub or go into a swimming pool until after your first recheck in the office. SPECIAL CARE INSTRUCTIONS: VERY IMPORTANT TO READ AND REVIEW A. Your surgical incision has been closed with a cosmetic suture under the skin that will dissolve in about 6 weeks. In 14 days, you can use a pair of clean scissors and cut the suture that is left outside of the skin at the ends of your incision. 1. The small skin tapes can be removed 7 days after surgery if they have not fallen off by that point. 2. You may keep the wound open to air as much as possible to promote healing after post-op day number 5 unless told otherwise by your doctor. 3. If you think the wound looks like it is becoming infected (redness or worsening drainage) and/or you are experiencing fever, chill or worsening back pain and muscle spasms, contact the office so that we may evaluate you as soon as possible. B. Complications are uncommon, but please contact us if you have any signs or symptoms of: 1. wound infection (fever higher than 102.5 degrees F, redness, separation of wound, drainage, or increasing pain from the incision) 2. blood clots in legs (pain, swelling, redness and warmth in legs) 3. urinary tract infection (fever higher than 102.5 degrees F, burning upon urination or increased frequency of urination) 4. nerve problems (inability to walk on your toes or heels, numbness, loss of bowel or bladder control) 5. any other symptoms that concern you C. Please call the office at if you have any concerns or questions about your operation or recovery. D. No smoking! Smoking drastically decreases the chance of a solid fusion. E. Do not take any anti-inflammatory medications (Indocin, Advil, Motrin, Aspirin, Naprosyn, etc.) as these may inhibit the chance of a solid fusion. Tylenol is okay to take for pain. MANAGING PAIN AFTER SPINAL SURGERY 1. Narcotic medication is intended for short-term use and will be provided for surgical pain. Surgical pain usually lasts for a period of 4-6 weeks. Narcotic medication includes Percocet, Vicodin, Darvocet, Tylenol #3 or Lortab. 2. Longer-term pain is more appropriately treated with non-narcotic medication such as Tylenol ES. 3. Muscle spasm is not appropriately treated with narcotics. Muscle relaxers such as Soma, Flexeril or Skelaxin can be used along with Tylenol ES. 4. Remember that we all live with some "aches and pains". This is not unusual or uncommon after an injury or as we get older. a. Back pain is expected and may include muscle spasms for 4 to 6 weeks after surgery. The pain should gradually improve. If the pain worsens for no apparent reason, please contact the office. b. Intermittent leg pain may also be experienced and should not be concerned about unless it worsens for no apparent reason. If so, please contact the office. 5. We will provide appropriate medication within the normal guidelines of their prescribed use. We will also be very cautious and aware of potential abuse and extended duration of patients' medication needs. a. Pain medications are for your comfort and to assist with sleep and rest so that the tissue can heal. They are not provided in order to return to normal activity and should not be used through the day. To do so or worsening pain at night can result from ongoing tissue damage and development of tolerance to the prescribed medicine. 6. Please allow 2-3 days to process refills. Prescriptions will not be mailed but must be picked up at the office. FOLLOW UP VISIT: Keep your scheduled follow-up appointment. Any questions, please call the office at . Pending Studies at Discharge: No Stand-Alone Forms: [facility] [employer] Opioid Pain Management, Smoking Cessation Medications and DC Order Prescriptions: New oxycodone 5 mg tablet 5 mg PO Q6H PRN (Reason: pain, severe) Qty: 30 RF: 0 tramadol 50 mg tablet 50 mg PO Q6H PRN (Reason: pain, moderate) Qty: 30 RF: 0 Continued metformin 500 mg Tablet 500 mg PO BID RF: 0 lisinopril 20 mg Tablet 20 mg PO QAM RF: 0 aspirin 81 mg Tablet,Delayed Release (Dr/Ec) 81 mg PO PM RF: 0 pravastatin 10 mg Tablet 10 mg PO PM RF: 0 tamsulosin 0.4 mg Capsule 0.4 mg PO PM RF: 0 allopurinol 300 mg Tablet 300 mg PO QAM RF: 0 gabapentin 100 mg Capsule 100 mg PO BID RF: 0 albuterol sulfate 90 mcg/actuation Hfa Aerosol Inhaler 1 inh INHALATION QID PRN (Reason: Shortness Of Breath) RF: 0 duloxetine 60 mg Capsule,Delayed Release(Dr/Ec) 60 mg PO QAM RF: 0 fenofibrate nanocrystallized 48 mg Tablet 48 mg PO QAM RF: 0 Breo Ellipta 100-25 mcg/dose Blister With Device 1 inh INHALATION PM RF: 0 Discharge Orders: Discharge Order (Routine); Ordered 03/06/21 Ordered By: Musa Sifuentes/Other Patient Handouts: Managing Type 2 Diabetes, Discharge Instructions Caring for ..., Managing Diabetes: The A1C Test Admission Data Admit Date/Time: 03/03/21 10:47 Attending Provider: Musa Vides Admit Provider: Musa Vides Primary Care Provider: Leida Barba Other Providers: Yulissa Hinkle Other Interventions: Discharge Summary Assessment (RN) Last Done: 03/06/21 13:33
== END 2021-03-06 14:47 | disposition home or self-care (01) | DRG 454 ==
LOC: ASU 06:11 → 3E 10:47